=== PATIENT | female | born 1945 | race Caucasian/White ===

== ENCOUNTER → 2019-09-07 | Outpatient (CLI) | payer MEDICARE ==
[~2019-09-07] MED LIST: ACET650S12 PR; AMLO10TA8 PO; AMPI3VIA IV; ATOR40TA78 PO; METF500T17 PO; METO25TA35 PO; OMNIPAQUE 350 MG/ML, 75ML BOTTLE ONE; SITA50TA PO; TELM80TA PO
== END | disposition home or self-care (01) ==
LOC: RAD 11:11
PROVIDERS: ATTEND Specialist
DX: C55 Malignant neoplasm of uterus, part unspecified (principal); K63.9 Disease of intestine, unspecified; R18.0 Malignant ascites; N85.8 Other specified noninflammatory disorders of uterus; R06.02 Shortness of breath; I70.0 Atherosclerosis of aorta; M85.80 Other specified disorders of bone density and structure, unspecified site; M47.814 Spondylosis without myelopathy or radiculopathy, thoracic region; E04.2 Nontoxic multinodular goiter; I51.89 Other ill-defined heart diseases; F41.9 Anxiety disorder, unspecified
CPT/HCPCS: 71275; Q9967